=== PATIENT | female | born 1955 | race Two or more races ===

== ENCOUNTER 2017-01-31 16:32 | Emergency (ER) | payer MEDICAID, OTHER ==
[~2017-01-31] VITALS: Ht 299.7 cm; Wt 72.6 kg
[2017-01-31 16:39] VITALS: BP 170/91
== END 2017-01-31 17:27 | disposition home or self-care (01) ==
LOC: ER 16:40
DX: B02.9 Zoster without complications (principal); N39.0 Urinary tract infection, site not specified; Z88.0 Allergy status to penicillin; E11.9 Type 2 diabetes mellitus without complications

== ENCOUNTER 2017-02-13 12:08 | Emergency (ER) | payer MEDICAID ==
[~2017-02-13] VITALS: Ht 172.7 cm; Wt 72.6 kg
[2017-02-13 12:49] VITALS: BP 128/70
== END 2017-02-13 13:04 | disposition home or self-care (01) ==
LOC: ER 12:08
DX: M71.21 Synovial cyst of popliteal space [Baker], right knee (principal); Z88.0 Allergy status to penicillin; E11.9 Type 2 diabetes mellitus without complications